=== PATIENT | female | born 1980 | race African-American/Black ===

== ENCOUNTER 2018-06-13 19:05 | Emergency (ER) | payer MEDICARE, OTHER ==
[2018-06-13] MEDS: DIAZEPAM 5 MG TAB PO (20:54)
== END 2018-06-13 21:50 | disposition home or self-care (01) ==
LOC: FTE 19:05
DX: F41.9 Anxiety disorder, unspecified (principal); F17.210 Nicotine dependence, cigarettes, uncomplicated
CPT/HCPCS: 99283

== ENCOUNTER 2018-06-27 22:04 | Emergency (ER) | payer MEDICARE, OTHER ==
[2018-06-28] MEDS: SOD CHLORIDE 0.9% 1,000 ML IV (00:54)
[2018-06-28] MEDS: ONDANSETRON 4 MG INJ IV (00:54)
[2018-06-28 01:26] LABS: ADD UMIC YES; UR ASCORBIC ACID NEGATIVE (NEGATIVE); UR BACTERIA FEW /HPF (NONE SEEN); UR BILIRUBIN (Dip) NEGATIVE (NEGATIVE); UR BLOOD (Dip) 2+ mg/dL (NEGATIVE); UR CLARITY SLIGHTLY CLOUDY (CLEAR); UR COLOR YELLOW (YELLOW); UR GLUCOSE (Dip) NEGATIVE (NEGATIVE); UR KETONES (Dip) 1+ mg/dL (NEGATIVE); UR LEUKOCYTE ESTERASE (Dip) NEGATIVE Leu/ul (NEGATIVE); UR MUCUS FEW /HPF (NONE SEEN); UR NITRITE (Dip) NEGATIVE (NEGATIVE); UR RBC 13 /HPF (0-5); UR SPECIFIC GRAVITY (Dip) 1.026 (1.003-1.030); UR SQUAMOUS EPITHELIAL CELL FEW /HPF (FEW); UR TOTAL PROTEIN (Dip) NEGATIVE (NEGATIVE); UR UROBILINOGEN (Dip) NEGATIVE (NEGATIVE); UR WBC 1 /HPF (0-5)
[2018-06-28 02:25] LABS: ADD MAN DIFF? NO
[2018-06-28 02:26] LABS: BASOPHILS % 0.3 % (0.0-2.0); EOSINOPHILS % 0.3 % (0.0-7.0); HEMATOCRIT 38.1 % (37.0-47.0); HEMOGLOBIN 12.1 g/dl (12.0-16.0); LYMPHOCYTES # 2.3 10^3/ul (0.8-2.9); LYMPHOCYTES % 26.2 % (15.0-51.0); MEAN CORPUSCULAR HEMOGLOBIN 27.3 pg (29.0-33.0); MEAN CORPUSCULAR HGB CONC 31.8 g/dl (32.0-37.0); MEAN CORPUSCULAR VOLUME 85.8 fl (82.0-101.0); MEAN PLATELET VOLUME 9.9 fl (7.4-10.4); MONOCYTE # 0.6 10^3/ul (0.3-0.9); MONOCYTES % 6.5 % (0.0-11.0); NEUTROPHIL # 5.7 10^3/ul (1.6-7.5); NEUTROPHILS % 66.4 % (39.0-77.0); PLATELET COUNT 237 10^3/UL (140-415); RED BLOOD COUNT 4.44 10^6/ul (4.20-5.40); RED CELL DISTRIBUTION WIDTH 13.9 % (11.5-14.5)
[2018-06-28 02:26] LABS: WHITE BLOOD COUNT 8.6 10^3/ul (4.8-10.8)
[2018-06-28 02:46] LABS: ALANINE AMINOTRANSFERASE 15 IU/L (13-69); ALBUMIN 4.8 g/dl (3.3-4.9); ALBUMIN/GLOBULIN RATIO 1.26; ALKALINE PHOSPHATASE 113 IU/L (42-121); ANION GAP 13 (5-13); ASPARTATE AMINO TRANSFERASE 24 IU/L (15-46); BILIRUBIN,INDIRECT 0.2 mg/dl (0-1.1); BILIRUBIN,TOTAL 0.2 mg/dl (0.2-1.3); BLOOD UREA NITROGEN 13 mg/dl (7-20); CARBON DIOXIDE 24 mmol/L (21-31); CHLORIDE 105 mmol/L (97-110); CREATININE 0.69 mg/dl (0.44-1.00); Estimated GFR > 60 mL/min (>60); GLUCOSE 88 mg/dl (70-220); LIPASE 30 U/L (23-300); POTASSIUM 3.8 mmol/L (3.5-5.1); SODIUM 142 mmol/L (135-144); TOTAL PROTEIN 8.6 g/dl (6.1-8.1)
[2018-06-28] MEDS: morphine 10 MG INJ IV (03:07)
[2018-06-28] MEDS: KETOROLAC 15 MG INJ IV (03:07)
== END 2018-06-28 06:06 | disposition home or self-care (01) ==
LOC: E/R 22:04
DX: R10.84 Generalized abdominal pain (principal); R07.9 Chest pain, unspecified; M54.9 Dorsalgia, unspecified; R31.21 Asymptomatic microscopic hematuria; R19.09 Other intra-abdominal and pelvic swelling, mass and lump; Z86.2 Personal history of diseases of the blood and blood-forming organs and certain disorders involving the immune mechanism
CPT/HCPCS: 71045; 74176; 80053; 81001; 81025; 83690; 85025; 96374; 96375; 99285-25

== ENCOUNTER 2018-07-19 01:02 | Emergency (ER) | payer MEDICARE, OTHER ==
[2018-07-19] MEDS: ONDANSETRON (ODT) 4 MG TAB ODT (06:39)
[2018-07-19] MEDS: HYDROCODONE/APAP (5/325) TAB PO (06:39)
== END 2018-07-19 07:40 | disposition home or self-care (01) ==
LOC: FTE 01:02
DX: M25.511 Pain in right shoulder (principal); J45.909 Unspecified asthma, uncomplicated
CPT/HCPCS: 99283

== ENCOUNTER 2018-07-27 18:58 | Emergency (ER) | payer MEDICARE, OTHER ==
[2018-07-27] MEDS: ONDANSETRON (ODT) 4 MG TAB ODT (23:06)
[2018-07-27] MEDS: HYDROCODONE/APAP (5/325) TAB PO (23:06)
[2018-07-27] MEDS: KETOROLAC 30 MG INJ IM (23:29)
== END 2018-07-28 00:01 | disposition home or self-care (01) ==
LOC: FTE 07-28 00:01
DX: M25.511 Pain in right shoulder (principal); M79.7 Fibromyalgia; J45.909 Unspecified asthma, uncomplicated
CPT/HCPCS: 81025; 96372; 99284-25